=== PATIENT | male | born 1965 | race Caucasian/White ===

== ENCOUNTER 2021-05-20 06:11 | Emergency (ER) | payer OTHER ==
[~2021-05-20] VITALS: Ht 185.4 cm; Wt 72.6 kg
--- NOTE | ~2021-05-20 | EMS ---
[address] [address] EMS Patient Care Report Name: KAREN TREVINO Room #: REG [facility] [place]#: [id number] Admission: 05/20/21 Attend Phys: Discharge: Date of : 61 Report #: [id number] THIS REPORT FOR: //name// Report Transmitted: 05/20/2021 07:22 EMS Care Summary [facility] MED-ACT Incident [id number] @ 05/20/2021 05:50 Incident Location [address] [place] [address] Patient KAREN TREVINO Male, 55 Years 1965 Patient Address [address] [place] [address] Patient History Hypertension (HTN),Hyperlipidemia,Gastro-Esophageal Reflux Disease (GERD),Cirrhosis of Liver,Liver Failure,Neurological Condition - Other,Anxiety Disorder (Panic Attacks),Pancreatitis,Alcohol Abuse,Back Surgery,Ulcerative Colitis, Patient Allergies Penicillin allergy, Patient Medications Simvastatin, Ibuprofen, Hydrochlorothiazide (Hctz), Lisinopril, Pantoprazole, Chief Complaint "no one cares" Disposition Transported No Lights/[place] Dispatch Reason Unconscious/Fainting Transported To [facility] Narrative dispatch: medic [id number] dispatched to a private residence for a report of an pt [address] [address] EMS Patient Care Report Name: KAREN TREVINO Room #: REG ER [place]#: [id number] Admission: 05/20/21 Attend Phys: Discharge: Date of : 61 Report #: [id number] suffering from a syncopal episode. medic 1134 immediately responded to the scene without delay. chief complaint: upon arrival to the scene ems finds a 55 y/o male pt standing upright on the driveway speaking with responders from the [place] fire department. pt alert, slow to respond to questions. pt complains of feeling as if "no one cares." history of present illness: pt states he's been going through a rough time and feels as though something bad is going to happen to him in his house and no one will care to come find him. pt admits to consuming an unknown amount of alcohol through out the evening. pt reports a long history of alcohol abuse. assessment: als assessment performed, findings noted within report. pertinent findings include pt presenting with blood shot eyes and a smell of alcoholic beverages. rendered treatment: assessment, vital signs, transport. transport: pt requests transport to [facility]. pt self transferred to stretcher. stretcher transferred to ambulance, lifted, and secured. pt continuously monitored through out transport for changes in condition. upon arrival to the receiving facility pt self transfers to er bed. verbal report given to attending staff and transfer of care complete. Initial Vitals @06:06P: 87,R: 16,BP: 163/96,GCS: 14,SpO2: 94,Revised Trauma: 12, @06:01P: 113,R: 16,BP: 190/94,Pain: 0/10,GCS: 14,Temp: 98.2F,SpO2: 99,Revised Trauma: 12, Impression Alcohol use Procedures @06:04 ALS Assessment Response: UnchangedSucceeded @06:10 Surgical Mask on Patient Response: Unchanged Timeline 05:48,Call Received 05:48,Psap Call 05:50,Dispatched 05:51,En Route 05:56,On Scene 05:58,At Patient [address] [address] EMS Patient Care Report Name: KAREN TREVINO [place] Room #: REG [facility].#: [id number] Admission: 05/20/21 Attend Phys: Discharge: Date of : 61 Report #: [id number] 06:01,Depart Scene 06:01,BP: 190/94 M,PULSE: 113,RR: 16 R,SPO2: 99 Ox,ETCO2: ,BG: ,PAIN: 0,GCS: 14, 06:04,ALS Assessment,Response: UnchangedSucceeded, 06:06,BP: 163/96 M,PULSE: 87,RR: 16 R,SPO2: 94 Ox,ETCO2: ,BG: ,PAIN: ,GCS: 14, 06:08,At Destination 06:10,Surgical Mask on Patient,Response: Unchanged 06:33,Call Closed Disclaimer [email or web address] Copyright 2020 [employer] This EMS Care Summary contains data elements from the applicable legal record (which may be displayed differently). It is designed to provide pertinent information for the following purposes: continuity of care, clinical quality, and state data reporting. The complete legal record is available to ED staff and administrators of the receiving hospital in [facility]'s Patient Tracker. All data is provided "as is."
[~2021-05-20 06:11] MED LIST: BENICAR40 MG PO; CARISOPRODOL 3350 MG PO; DESYREL50 MG PO; DOXYCYCLINE 10100 MG PO; FLEXERIL PO; HYDROCHLOROTHIA25 M2 PO; IBUPROFEN 800800 M1 PO; LISINOPRIL-HCT1 EAC1; MEDROL DOSPAK21 TAB PO; MEDROLDOSEPACK PO; METHADONE HCL5 MG PO; METHADOSE10 M1 PO; MULTIVITAMINS1 EAC7 PO; NEURONTIN 300300 M1 PO; NORCO 5-325 TA1 EACH PO; PERCOCET 10-321 EACH; PERCOCET 10-321 EACH PO; PERCOCET 5-3251 EACH; PERCOCET 5-3251 EACH PO; PERCOCET 7.5-51 EACH PO; PREDNISONE 20 M20 MG PO; PRINZIDE 20-121 EACH PO; SIMVASTATIN40 MG PO; ULTRAM 50MG TAB50 MG PO; ZESTRIL20 MG PO
[2021-05-20] MEDS ORDERED: ASA81BEC PO (06:28)
[2021-05-20 06:44] LABS: ABSOLUTE NEUTROPHILS 2.8 thou/uL (1.4-8.2); BASOPHILS 2.7 % (0.0-2.0); EOSINOPHILS 0.7 % (0.0-3.0); HEMATOCRIT 45.2 % (42.0-52.0); HEMOGLOBIN 15.4 gm/dL (14.0-18.0); LYMPHOCYTES 38.7 % (24.0-44.0); MCH 32.8 pg (26.0-34.0); MCHC 34.1 g/dL (28.0-37.0); MCV 96.3 fL (80.0-100.0); MONOCYTES 4.8 % (1.0-8.0); PLATELET COUNT 208 thou/uL (150-400); POLYS 53.1 % (36.0-66.0); WBC 5.2 thou/uL (4.0-11.0)
[2021-05-20 06:45] LABS: URINE BILIRUBIN NEGATIVE (Negative); URINE BLOOD NEGATIVE (Negative); URINE CLARITY CLEAR; URINE COLOR YELLOW; URINE GLUCOSE-RANDOM* NEGATIVE (Negative); URINE KETONES 2+ (Negative); URINE LEUKOCYTES-REFLEX NEGATIVE (Negative); URINE NITRITE-REFLEX NEGATIVE (Negative); URINE PROTEIN (DIPSTICK) NEGATIVE (Negative); URINE UROBILINOGEN 0.2 E.U./dl (0.2-1.0)
[2021-05-20 06:49] LABS: ANION GAP 22 mmol/L (7-16); BUN 13 mg/dL (7-18); CALCIUM 8.4 mg/dL (8.5-10.1); CHLORIDE 102 mmol/L (98-107); CO2 21 mmol/L (21-32); CREATININE 0.7 mg/dL (0.7-1.3); GLUCOSE 66 mg/dL (74-106); POTASSIUM 3.2 mmol/L (3.5-5.1); SODIUM 145 mmol/L (136-145)
[2021-05-20 06:51] LABS: AMP/METHAMP Negative (Negative); BARBITURATES Negative (Negative); BENZODIAZEPINES Negative (Negative); COCAINE Negative (Negative); METHADONE Negative (Negative); OPIATES Negative (Negative); PCP Negative (Negative)
[2021-05-20 06:56] LABS: ALBUMIN 3.7 g/dL (3.4-5.0); SALICYLATE 9.9 mg/dL (2.8-20.0); SGOT 154 U/L (15-37); SGPT 94 U/L (16-63); TOTAL BILIRUBIN 0.4 mg/dL (0.2-1.0); TOTAL PROTEIN 7.6 g/dL (6.4-8.2)
--- NOTE | 2021-05-20 09:04 | EKG ---
[place] [address] [facility] [place] [address] ELECTROCARDIOGRAM REPORT Name: KAREN TREVINO [id number] Admission: 05/20/21 Attend Phys: Discharge: Date of : 61 Report #: [id number] [facility] ED Test Date: 2021-05-20 Test Time: 06:40:35 Pat Name: KAREN TREVINO Department: Room: Gender: M Cook Seafood: RAHUL : 1965 Requested By: Jerome Yan Order Number: [id number] MD: Fawad Ricci Measurements Intervals [place] Rate: 78 P: 44 [place]: 153 QRS: 34 QRSD: 101 T: 36 QT: 425 QTc: 485 Interpretive Statements Sinus rhythm Borderline prolonged QT interval Compared to ECG 07/25/1994 12:36:00 No significant changes Electronically Signed On 05-20-2021 9:04:44 MANAGER RESIDENTIAL by Fawad Ricci [email or web address] <ELECTRONICALLY SIGNED> By: Fawad Ricci MD, [facility] 05/20/21 0904 0640 0640 Fawad Ricci MD, FACC /EPI
[2021-05-20 09:51] VITALS: BP 157/91
== END 2021-05-20 09:42 | disposition home or self-care (01) ==
LOC: ER 06:11
PROVIDERS: Emergency Medicine
DX: F10.129 Alcohol abuse with intoxication, unspecified (principal); Z20.822 Contact with and (suspected) exposure to COVID-19; F32.9 Major depressive disorder, single episode, unspecified; E87.6 Hypokalemia; Z98.890 Other specified postprocedural states; Z90.49 Acquired absence of other specified parts of digestive tract; Z79.82 Long term (current) use of aspirin; Z79.891 Long term (current) use of opiate analgesic; Z79.899 Other long term (current) drug therapy; Z88.0 Allergy status to penicillin; Y90.8 Blood alcohol level of 240 mg/100 ml or more